=== PATIENT | female | born 1985 | race Two or more races ===

== ENCOUNTER 2017-04-16 14:27 | Emergency (ER) | payer SELFPAY ==
[~2017-04-16] VITALS: Ht 157.5 cm; Wt 68.0 kg
[2017-04-16] MEDS ORDERED: BACLOFEN 10 MG TAB PO ONE (17:00)
[2017-04-16] MEDS ORDERED: IBUPROFEN 600 MG TAB PO ONE (17:00)
[2017-04-16 17:07] VITALS: BP 117/70
== END 2017-04-16 18:00 | disposition home or self-care (01) ==
LOC: ER 14:27
DX: S00.93XA Contusion of unspecified part of head, initial encounter (principal); M79.1 Myalgia; V73.5XXA Driver of bus injured in collision with car, pick-up truck or van in traffic accident, initial encounter; Y93.89 Activity, other specified; Y92.89 Other specified places as the place of occurrence of the external cause; Y99.8 Other external cause status
CPT/HCPCS: 70450